=== PATIENT | male | born 1940 | race Caucasian/White ===

== ENCOUNTER 2020-05-17 04:58 | Emergency (ER) | payer MEDICARE ==
[~2020-05-17] VITALS: Ht 177.8 cm; Wt 85.0 kg
[2020-05-17 05:15] VITALS: BP 130/61
[2020-05-17] MEDS ORDERED: LEVO125T8 MT (05:26)
[2020-05-17] MEDS ORDERED: LEVOTHYROXINE SODIUM 125MCG TABLET PO ONE (05:30)
== END 2020-05-17 05:51 | disposition home or self-care (01) ==
LOC: ER 04:58
DX: E03.9 Hypothyroidism, unspecified (principal); Z76.0 Encounter for issue of repeat prescription; Z91.14 Patient's other noncompliance with medication regimen
CPT/HCPCS: 99283

== ENCOUNTER 2020-05-24 00:29 | Emergency (ER) | payer MEDICARE ==
[~2020-05-24] VITALS: Ht 177.8 cm; Wt 77.0 kg
[~2020-05-24 00:29] MED LIST: LEVO125T8 MT
[2020-05-24 02:27] LABS: BASOPHILS % 0.7 % (0.0-2.0); EOSINOPHILS % 2.9 % (0.0-5.0); HEMATOCRIT. 44.7 % (42.0-52.0); HEMOGLOBIN. 14.9 g/dL (14.0-18.0); LYMPHOCYTES % 11.9 % (20.0-50.0); MEAN CORPUSCULAR HEMOGLOBIN 33.5 pg (28.0-32.0); MEAN CORPUSCULAR VOLUME 100.4 fL (80.0-94.0); MONOCYTES % 6.7 % (2.0-8.0); NEUTROPHILS % 77.8 % (40.0-76.0); PLATELET 248 x1000/uL (130-400); RED BLOOD CELL COUNT 4.46 mill/uL (4.7-6.1); RED CELL DISTRIBUTION WIDTH 14.3 % (11.6-14.6)
[2020-05-24 02:33] LABS: CHLORIDE 104 mEq/L (98-107)
[2020-05-24 02:39] LABS: ETHANOL BLOOD < 10 mg/dL
[2020-05-24 02:45] VITALS: BP 129/81
== END 2020-05-24 03:03 | disposition left against medical advice (07) ==
LOC: ER 00:29
DX: R07.89 Other chest pain (principal)
CPT/HCPCS: 36415; 80048; 80307; 80320; 80329; 85025; 93005; 99284; G0480

== ENCOUNTER 2020-07-26 04:09 | Emergency (ER) | payer BC, MEDICARE ==
[~2020-07-26] VITALS: Ht 167.6 cm; Wt 68.0 kg
[2020-07-26 05:14] LABS: BASOPHILS % 0.6 % (0.0-2.0); HEMATOCRIT. 39.4 % (42.0-52.0); HEMOGLOBIN. 13.2 g/dL (14.0-18.0); LYMPHOCYTES % 14.1 % (20.0-50.0); MEAN CORPUSCULAR HEMOGLOBIN 33.1 pg (28.0-32.0); MEAN CORPUSCULAR VOLUME 98.8 fL (80.0-94.0); MEAN PLATELET VOLUME 7.8 fl (7.4-10.4); MONOCYTES % 9.8 % (2.0-8.0); NEUTROPHILS % 71.5 % (40.0-76.0); PLATELET 229 x1000/uL (130-400); RED BLOOD CELL COUNT 3.99 mill/uL (4.7-6.1); RED CELL DISTRIBUTION WIDTH 13.9 % (11.6-14.6)
[2020-07-26 05:21] LABS: CHLORIDE 104 mEq/L (98-107)
[2020-07-26 08:06] VITALS: BP 117/66
== END 2020-07-26 08:28 | disposition home or self-care (01) ==
LOC: ER 04:09
DX: R07.89 Other chest pain (principal); Z88.0 Allergy status to penicillin; Z86.39 Personal history of other endocrine, nutritional and metabolic disease
CPT/HCPCS: 36415; 71045; 80053; 84484; 85025; 93005; 99285